=== PATIENT | female | born 1990 | race Caucasian/White ===

== ENCOUNTER 2017-07-11 15:01 | Inpatient (IN) ==
--- NOTE | 2017-07-11 15:13 | Emergency Department Note ---
Disposition Clinical Impression: UTI (urinary tract infection) Qualifiers: Urinary tract infection type: acute cystitis Hematuria presence: without hematuria Qualified Code(s): N30.00 - Acute cystitis without hematuria Fever Qualifiers: Fever type: unspecified Qualified Code(s): R50.9 - Fever, unspecified Disposition: Admitted As Inpatient Condition: Good Forms: ED Satisfaction Letter Time of Disposition: 17:20 Fever HPI - General Chief Complaint: ED Fever Stated Complaint: Flu-Like Symptoms Time Seen by Provider: 07/11/17 15:04 Source: EMS Mode of arrival: EMS Limitations: no limitations Nursing Notes Reviewed: Yes Vital Signs Reviewed: Yes - History of Present Illness HPI Narrative: 26-year-old female with a fever of, nausea vomiting. Attempt her on arrival to the ER 102.9. She was seen by healthcare provide who diagnosed her with influenza and started on Tamiflu. Patient states it makes her nauseated. Pt Subjective Complaint: fever, malaise Onset (ago): Just [employer] Context: spontaneous (Nose with flu no swab done) Associated symptoms: Reports: chills, myalgias, nausea, vomiting Improves with: nothing Treatments prior to arrival fever: ibuprofen - Related Data Home Medications Medication Instructions Recorded Confirmed HydrOXYzine 03/31/16 Lexapro 03/31/16 Loratadine 03/31/16 Vitamin B 12 03/31/16 Previous Rx's Medication Instructions Recorded Hydrocodone/Acetaminophen [[place] 1 - 2 each PO Q6H PRN #10 tablet 09/30/15 5-325 Tablet] Acyclovir [Zovirax] 800 mg PO 5XD #35 tablet 03/31/16 Azithromycin [Azithromycin 6-Tab 250 mg PO DAILY #6 tab 03/31/16 Pack] Benzonatate [Tessalon] 200 mg PO TID PRN #30 capsule 03/31/16 DiphenhydraMINE [Benadryl] 50 mg PO Q8HR PRN #30 capsule 01/18/17 PredniSONE [Deltasone] 20 mg PO DAILY 21 Days tablet 01/18/17 Allergies Allergy/AdvReac Type Severity Reaction Status Date / Time Cefaclor [From [facility]] Allergy See Verified 01/18/17 13:52 Comments All systems ED: reviewed and negative except as stated. Constitutional: Reports: fever, chills. Denies: weakness, weight change Eyes: Denies: eye pain, eye discharge, vision change ENT ED: Denies: ear pain, throat pain, dental pain, hearing loss, epistaxis, congestion, dysphagia Cardiovascular: Denies: chest pain, palpitations, dyspnea on exertion, edema, syncope Respiratory: Denies: cough, dyspnea, wheezes, hemoptysis, stridor Gastrointestinal: Reports: nausea, vomiting. Denies: abdominal pain, diarrhea, constipation, hematemesis, melena, hematochezia Genitourinary: Denies: dysuria, frequency, hematuria, discharge Musculoskeletal: Reports: arthralgia. Denies: back pain, neck pain, myalgia Integumentary: Denies: rash, abrasion, lesions Neurological: Denies: headache, weakness, numbness, paresthesias, confusion, abnormal gait, vertigo Psychiatric: Denies: anxiety, depression, suicidal thoughts, homicidal thoughts , auditory hallucinations, visual hallucinations Endocrine: Denies: fatigue Hematological/Lymphatic: Denies: easy bleeding, easy bruising Allergic/Immunologic: Denies: facial swelling, urticaria Fever PMH - Past Medical History Medical history: Reports: no medical history Psychiatric history: Reports: no psych history - Social History Smoking Status: Current every day smoker Alcohol use: Reports: occasionally Drug use: Reports: none Physical Exam - General Limitations: no limitations General appearance: alert, in no apparent distress - Head Head exam: atraumatic, normocephalic, normal inspection - Eye Eye exam: Present: normal appearance, PERRL, EOMI - ENT ENT exam: normal exam, normal oropharynx, mucous membranes moist - Neck Neck exam: Present: normal inspection, full ROM, trachea midline - Chest Chest inspection: Present: normal inspection, symmetric chest wall rise - Respiratory Respiratory exam: Present: normal lung sounds bilaterally - Cardiovascular Cardiovascular exam: Present: regular rate, normal rhythm, normal heart sounds - Abdominal Exam Abdominal exam: Present: soft, Non-Tender. Absent: tenderness, distention, guarding, rebound, rigidity - Extremities Exam Extremities exam: Present: normal inspection, full ROM. Absent: tenderness, pedal edema - Expanded Lower Extremity Exam Neurovascular/Tendon exam: Absent: motor deficit, sensory deficit, tendon deficit Gait: observed and normal - Back Exam Back exam: Present: normal inspection, full ROM. Absent: tenderness - Neurological Exam Neurological exam: Present: alert, oriented X3 - Psychiatric Psychiatric exam: Present: normal affect, normal mood - Skin Skin exam: Present: warm, dry, intact, normal color Course - Reevaluation(s) Reevaluation #1: Patient with fever, nausea and some vomiting previously comes in with temperature she reported at home 104, 102 here. Urine shows too numerous to count white cells white count slightly elevated her flu swab is negative. Patient was given a 30 mL per kilo bolus. Patient will be admitted for IV antibiotics. Time: 17:18 - Consultations Consultation #1: Discussed with Dr. Otto, admit Time: 17:18 Vital Signs Temperature 102.9 F H 07/11/17 15:02 Pulse Rate 117 07/11/17 15:02 Respiratory Rate 20 07/11/17 15:02 Blood Pressure 126/93 07/11/17 15:02 O2 Sat by Pulse Oximetry 95 07/11/17 15:02 Temperature 99.8 F H 07/11/17 16:21 Pulse Rate 110 07/11/17 16:21 Respiratory Rate 18 07/11/17 16:21 Blood Pressure 108/55 07/11/17 16:21 O2 Sat by Pulse Oximetry 93 07/11/17 16:21 Oxygen Delivery Oxygen Delivery Room Air Fever - Lab Data Result diagrams: 07/11/17 15:15 07/11/17 15:15 Lab Results 07/11/17 07/11/17 07/11/17 Range/Units 15:15 15:15 15:21 WBC 12.3 H (4.3-11.1) K/mcL RBC 4.16 (3.82-4.97) M/mcL Hgb 12.3 (11.5-15.4) g/dL Hct 36.7 (35.3-44.9) % MCV 88.2 (83.0-100.0) fL MCH 29.6 (28.0-33.3) pg MCHC 33.5 (31.6-35.5) g/dL RDW 12.2 (11.5-14.5) % Plt Count 137 L (140-400) K/mcL MPV 10.1 (9.4-12.4) fL Immature Gran % 0.4 (0-4) % Seg Neutrophils % 86.6 % Lymphocytes % 3.3 % Monocytes % 9.5 % Eosinophils % 0.0 % Basophils % 0.2 % Neutrophils # 10.6 H (1.6-8.9) K/mcL Lymphocytes # 0.4 L (0.6-4.6) K/mcL Monocytes # 1.2 (0.0-1.3) K/mcL Eosinophils # 0.0 (0.0-0.6) K/mcL Basophils # 0.0 (0.0-0.2) K/mcL Sodium 133 L (136-145) mEq/L Potassium 3.2 L (3.5-5.1) mEq/L Chloride 103 (98-107) mEq/L Carbon Dioxide 22 L (23-29) mEq/L BUN 13 (6-20) mg/dL Creatinine 0.90 (0.60-1.20) mg/dL Est GFR ( Amer) > 60 (> 60) Est GFR (Non-Af Amer) > 60 (> 60) BUN/Creatinine Ratio 14 (6-26) Glucose 136 H (70-105) mg/dL Calculated Osmolality 278 L (280-300) Lactic Acid (0.5-2.2) mmol/L Calcium 8.6 (8.6-10.3) mg/dL Total Bilirubin 0.7 (0.3-1.0) mg/dL Direct Bilirubin 0.2 (0.0-0.2) mg/dL Indirect Bilirubin 0.5 (0.0-1.2) mg/dL AST 12 L (13-39) Units/L ALT 11 (7-52) Units/L Alkaline Phosphatase 62 (34-104) Units/L Serum Total Protein 6.4 (6.4-8.9) g/dL Albumin 3.8 (3.5-5.7) g/dL Globulin 2.6 (2.4-3.5) g/dL Albumin/Globulin Ratio 1.5 (1.1-2.2) Urine Color Dark Yellow (Yellow) Urine Clarity Turbid A (Clear) Urine pH 6.0 (5.0-8.0) pH Units Ur Specific Carpenter 1.021 (1.010-1.025) Urine Protein 100 H (Neg-Trace) mg/dL Urine Glucose (UA) Normal (Normal) mg/dL Urine Ketones Negative (Negative) mg/dL Urine Blood Small H (Negative) Urine Nitrite Negative (Negative) Urine Bilirubin Negative (Negative) Urine Urobilinogen Normal (Normal) mg/dL Ur Leukocyte Esterase Large H (Negative) Urine Microscopic RBC 5-15 H (0-3) per hpf Urine Microscopic WBC TNTC H (0-3) per hpf Ur Squamous Epith Cells Many H (None-Few) per lpf Urine Bacteria Many H (None-Few) per hpf Hyaline Casts None Seen (None-Few) per lpf Ur Culture Indicated? NO. (NO) 07/11/17 Range/Units 16:17 WBC (4.3-11.1) K/mcL RBC (3.82-4.97) M/mcL Hgb (11.5-15.4) g/dL Hct (35.3-44.9) % MCV (83.0-100.0) fL MCH (28.0-33.3) pg MCHC (31.6-35.5) g/dL RDW (11.5-14.5) % Plt Count (140-400) K/mcL MPV (9.4-12.4) fL Immature Gran % (0-4) % Seg Neutrophils % % Lymphocytes % % Monocytes % % Eosinophils % % Basophils % % Neutrophils # (1.6-8.9) K/mcL Lymphocytes # (0.6-4.6) K/mcL Monocytes # (0.0-1.3) K/mcL Eosinophils # (0.0-0.6) K/mcL Basophils # (0.0-0.2) K/mcL Sodium (136-145) mEq/L Potassium (3.5-5.1) mEq/L Chloride (98-107) mEq/L Carbon Dioxide (23-29) mEq/L BUN (6-20) mg/dL Creatinine (0.60-1.20) mg/dL Est GFR ( Amer) (> 60) Est GFR (Non-Af Amer) (> 60) BUN/Creatinine Ratio (6-26) Glucose (70-105) mg/dL Calculated Osmolality (280-300) Lactic Acid 0.6 (0.5-2.2) mmol/L Calcium (8.6-10.3) mg/dL Total Bilirubin (0.3-1.0) mg/dL Direct Bilirubin (0.0-0.2) mg/dL Indirect Bilirubin (0.0-1.2) mg/dL AST (13-39) Units/L ALT (7-52) Units/L Alkaline Phosphatase (34-104) Units/L Serum Total Protein (6.4-8.9) g/dL Albumin (3.5-5.7) g/dL Globulin (2.4-3.5) g/dL Albumin/Globulin Ratio (1.1-2.2) Urine Color (Yellow) Urine Clarity (Clear) Urine pH (5.0-8.0) pH Units Ur Specific Carpenter (1.010-1.025) Urine Protein (Neg-Trace) mg/dL Urine Glucose (UA) (Normal) mg/dL Urine Ketones (Negative) mg/dL Urine Blood (Negative) Urine Nitrite (Negative) Urine Bilirubin (Negative) Urine Urobilinogen (Normal) mg/dL Ur Leukocyte Esterase (Negative) Urine Microscopic RBC (0-3) per hpf Urine Microscopic WBC (0-3) per hpf Ur Squamous Epith Cells (None-Few) per lpf Urine Bacteria (None-Few) per hpf Hyaline Casts (None-Few) per lpf Ur Culture Indicated? (NO)
[2017-07-11] MEDS ORDERED: 0.9 % Sodium Chloride 1,000 ML IVC ONE (15:14)
[2017-07-11] MEDS ORDERED: Ondansetron 4 MG/2 ML VIAL IVP ONE ×2 (15:20→16:09)
[2017-07-11] MEDS ORDERED: Acetaminophen 325 MG TABLET PO ONE (15:20)
[2017-07-11 15:23] LABS: Basophils % 0.2 %; Hematocrit 36.7 % (35.3-44.9); Hemoglobin 12.3 g/dL (11.5-15.4); Immature Granulocytes % 0.4 % (0-4); Lymphocytes # 0.4 K/mcL (0.6-4.6); Lymphocytes % 3.3 %; Mean Corpuscular HGB Conc 33.5 g/dL (31.6-35.5); Mean Corpuscular Hemoglobin 29.6 pg (28.0-33.3); Mean Corpuscular Volume 88.2 fL (83.0-100.0); Mean Platelet Volume 10.1 fL (9.4-12.4); Monocytes # 1.2 K/mcL (0.0-1.3); Monocytes % 9.5 %; Neutrophils # 10.6 K/mcL (1.6-8.9); Platelet Count 137 K/mcL (140-400); Red Blood Count 4.16 M/mcL (3.82-4.97); Red Cell Distribution Width 12.2 % (11.5-14.5); Segmented Neutrophils % 86.6 %
[2017-07-11 15:27] LABS: Bilirubin,Urine Negative (Negative); Blood,Urine Small (Negative); Clarity,Urine Turbid (Clear); Color,Urine Dark Yellow (Yellow); Glucose,Urine (UA) Normal (Normal); Ketones,Urine Negative (Negative); Leukocyte Esterase,Urine Large (Negative); Nitrite,Urine Negative (Negative); Protein,Urine 100 mg/dL (Neg-Trace); Specific Gravity,Urine 1.021 (1.010-1.025); Urobilinogen,Urine Normal (Normal)
[2017-07-11 15:28] LABS: Bacteria,Urine Many per hpf (None-Few); Hyaline Casts,Urine None Seen per lpf (None-Few); Squamous Epithelial Cell,Urine Many per lpf (None-Few); WBC,Urine TNTC per hpf (0-3)
[2017-07-11 16:02] LABS: Alanine Aminotransferase 11 Units/L (7-52); Albumin 3.8 g/dL (3.5-5.7); Albumin/Globulin Ratio 1.5 (1.1-2.2); Alkaline Phosphatase 62 Units/L (34-104); Aspartate Amino Transferase 12 Units/L (13-39); Bilirubin,Direct 0.2 mg/dL (0.0-0.2); Bilirubin,Indirect 0.5 mg/dL (0.0-1.2); Bilirubin,Total 0.7 mg/dL (0.3-1.0); Blood Urea Nitrogen 13 mg/dL (6-20); Calcium 8.6 mg/dL (8.6-10.3); Carbon Dioxide 22 mEq/L (23-29); Chloride 103 mEq/L (98-107); Globulin 2.6 g/dL (2.4-3.5); Glucose 136 mg/dL (70-105); Osmolality,Calculated 278 (280-300); Potassium 3.2 mEq/L (3.5-5.1); Sodium 133 mEq/L (136-145); Total Protein 6.4 g/dL (6.4-8.9)
[2017-07-11] MEDS ORDERED: Levofloxacin 500 MG/100 ML 500 MG/100 ML BAG IVPB ONE (16:11)
[2017-07-11] MEDS ORDERED: 0.9 % Sodium Chloride 1,000 ML IVC SCH (16:30)
[2017-07-11 17:11] LABS: BUN/Creatinine Ratio 14 (6-26); eGFR For African Americans > 60 (> 60); eGFR For Non-African Americans > 60 (> 60)
[2017-07-11] MEDS ORDERED: Naloxone 0.4 MG/ML INJ IVP PRN (20:53)
[2017-07-11] MEDS ORDERED: *HR* Meperidine 25 MG/ML SYRINGE IVP PRN ×4 (20:55→23:42)
--- NOTE | 2017-07-11 21:03 | Internal Med History&Physical ---
Date of Encounter: 07/11/17 Time of Encounter: 20:58 Assessment and Plan (1) URI (upper respiratory infection) Current visit: Yes Status: Acute check RVP continue tamiflu until RVP negative IVF with K for low K and low Na Empiric IV antibiotics for UTI ?? - not overtly symptomatic clinically, UA appears dirty Demerol for chills Blood and urine cx pend monitor 24-48 hr for improvement Specifically, no meningeal signs on exam but will monitor closel for now Qualifiers: URI type: unspecified viral URI Qualified Code(s): J06.9 - Acute upper respiratory infection, unspecified (2) Hyponatremia Current visit: Yes Status: Acute IVF with K for low K and low Na unable to tolerate PO intake, need IvF Iv zofran prn (3) Fever Current visit: Yes Status: Acute empiric fluid and antibiotics above Qualifiers: Fever type: due to other condition Qualified Code(s): R50.81 - Fever presenting with conditions classified elsewhere Internal Medicine - H&P: HPI Chief complaint: Chills,rigors History of present illness: Ms. Owusu is a 26 year old female with no PMH who presents with chills. Suspect viral infection She developed symptoms approx 4-5 days ago. Was seen in urgent care on and was given tamiflu where she started on thursday a.m with no improvement. She has been in bed for 2 days with symptoms of anorexia, nausea/emesis, sore throat , muscle ache all over, back pain, frontal and back of head headache with intermittent "flashes" seen. She has no UTI symptoms but has chills XR/XR chest 1V portable IMPRESSION: No acute cardiopulmonary process Past Med Surg Social Fam HX - Past Medical History Medical history: no medical history Psychiatric history: no psych history - Past Surgical History Surgical History: no surgical history, non-contributory - Social History Smoking Status: Current every day smoker Packs per day: <1 Smokeless Tobacco Status: No Alcohol use: occasionally Drug use: none - Family History Mother Hx Family Medical Disorders: No Internal Medicine - H&P: Meds Oseltamivir [Tamiflu] 75 mg PO BID 07/11/17 [History] 3 Allergy/AdvReac Type Severity Reaction Status Date / Time Cefaclor [From Ceclor] Allergy See Verified 01/18/17 13:52 Comments All Systems PM: A 10-system review of systems was performed and is negative for pertinent findings except as documented above in the HPI. Review of systems: ROS 14 point review of systems reviewed as best as possible given presentation. Pertinent positive or negative as per HPI or otherwise reviewed as negative - Constitutional Vitals: Temp Pulse Resp BP Pulse Ox 99.4 F 105 16 91/59 98 07/11/17 18:43 07/11/17 18:43 07/11/17 18:43 07/11/17 18:43 07/11/17 18:43 Exam: General - AAO x 3 Psych - Appropriate affect/speech. No agitation Eyes - HUMBLE. Eye lids intact. No scleral icterus Neuro - No gross peripheral or central neuro deficits on inspection. Negative for Kernig sign, mild neck discomfort but no overt Brudzinski sign Heart - Sinus. RRR. S1 and S2 present. No added HS/murmurs appreciated. No elevated JVD appreciated. Lung - Adequate air entry b/l, No crackles/wheezes appreciated GI - Soft, non-tender. No hepatosplenomegaly/ascites. BS+ - No CVA/suprapubic tenderness or palpable bladder distension Skin - Intact. No rash/petechiae/ecchymosis. Warm extremities Internal Med - H&P Results - Labs CBC & Chem 7: 07/11/17 15:15 07/11/17 15:15
[2017-07-11] MEDS ORDERED: Ondansetron 4 MG/2 ML VIAL IVP PRN (21:05)
[2017-07-11] MEDS: Ibuprofen 400 MG TABLET PO PRN (21:15)
[2017-07-11] MEDS: 0.9 % Sodium Chloride 1,000 ML IVC SCH ×2 (21:36→23:31)
[2017-07-11] MEDS: Acetaminophen 325 MG TABLET PO PRN (22:43)
[2017-07-12] MEDS: 0.9 % Sodium Chloride w KCl 20 MEQ/1,000 ML MLS IVC SCH ×2 (01:15→11:06)
[2017-07-12 02:42] LABS: Adenovirus Not Detected (Not Detect); Bordetella Pertussis Not Detected (Not Detect); Chlamydophila pneumoniae Not Detected (Not Detect); Coronavirus 229E Not Detected (Not Detect); Coronavirus HKU1 Not Detected (Not Detect); Coronavirus NL63 Not Detected (Not Detect); Coronavirus OC43 Not Detected (Not Detect); Human Metapneumovirus Not Detected (Not Detect); Human Rhinovirus/Enterovirus Not Detected (Not Detect); Influenza A Subtype 2009 H1 Not Detected (Not Detect); Influenza A Untypeable Not Detected (Not Detect); Influenza B Not Detected (Not Detect); Mycoplasma pneumoniae Not Detected (Not Detect); Parainfluenza Virus 1 Not Detected (Not Detect); Parainfluenza Virus 2 Not Detected (Not Detect); Parainfluenza Virus 3 Not Detected (Not Detect); Parainfluenza Virus 4 Not Detected (Not Detect); Respiratory Syncytial Virus Not Detected (Not Detect)
[2017-07-12] MEDS: Ibuprofen 400 MG TABLET PO PRN ×2 (02:42→07:44)
[2017-07-12] MEDS: Acetaminophen 325 MG TABLET PO PRN ×2 (03:27→11:05)
[2017-07-12 04:27] LABS: Basophils % 0.1 %; Hematocrit 34.8 % (35.3-44.9); Hemoglobin 11.2 g/dL (11.5-15.4); Immature Granulocytes % 0.7 % (0-4); Lymphocytes # 1.2 K/mcL (0.6-4.6); Lymphocytes % 11.2 %; Mean Corpuscular HGB Conc 32.2 g/dL (31.6-35.5); Mean Corpuscular Hemoglobin 29.5 pg (28.0-33.3); Mean Corpuscular Volume 91.6 fL (83.0-100.0); Mean Platelet Volume 10.6 fL (9.4-12.4); Monocytes # 0.8 K/mcL (0.0-1.3); Monocytes % 7.7 %; Neutrophils # 8.4 K/mcL (1.6-8.9); Platelet Count 121 K/mcL (140-400); Red Cell Distribution Width 12.4 % (11.5-14.5); Segmented Neutrophils % 80.3 %
[2017-07-12] MEDS ORDERED: *HR* FentaNYL (PF) 100 MCG/2 ML VIAL IVP ONE (04:52)
[2017-07-12] MEDS ORDERED: 0.9 % Sodium Chloride 1,000 ML IVC ONE (05:00)
[2017-07-12] MEDS ORDERED: Vancomycin 2,000 MG in D5% in Water 250 ML IVPB ONE (05:04)
[2017-07-12 05:08] LABS: Alanine Aminotransferase 12 Units/L (7-52); Albumin 3.4 g/dL (3.5-5.7); Albumin/Globulin Ratio 1.5 (1.1-2.2); Alkaline Phosphatase 59 Units/L (34-104); Aspartate Amino Transferase 15 Units/L (13-39); BUN/Creatinine Ratio 11 (6-26); Bilirubin,Total 0.6 mg/dL (0.3-1.0); Blood Urea Nitrogen 10 mg/dL (6-20); Calcium 7.6 mg/dL (8.6-10.3); Carbon Dioxide 23 mEq/L (23-29); Chloride 112 mEq/L (98-107); Globulin 2.3 g/dL (2.4-3.5); Glucose 129 mg/dL (70-105); Osmolality,Calculated 293 (280-300); Potassium 3.5 mEq/L (3.5-5.1); Sodium 141 mEq/L (136-145); Total Protein 5.7 g/dL (6.4-8.9); eGFR For African Americans > 60 (> 60); eGFR For Non-African Americans > 60 (> 60)
[2017-07-12] MEDS ORDERED: Vancomycin 1,500 MG in D5% in Water 250 ML IVPB SCH (06:00)
[2017-07-12] MEDS ORDERED: *HR* Enoxaparin 40 MG/0.4 ML SYRINGE SQ SCH (06:00)
[2017-07-12 10:08] LABS: Acinetobacter baumannii by PCR Not Detected (Not Detect); Candida albicans by PCR Not Detected (Not Detect); Candida glabrata by PCR Not Detected (Not Detect); Candida krusei by PCR Not Detected (Not Detect); Enterococcus by PCR Not Detected (Not Detect); Escherichia coli by PCR ***DETECTED*** (Not Detect); Klebsiella oxytoca by PCR Not Detected (Not Detect); Klebsiella pneumoniae by PCR Not Detected (Not Detect); Pseudomonas aeruginosa by PCR Not Detected (Not Detect); Serratia marcescens by PCR Not Detected (Not Detect); Staphylococcus aureus by PCR Not Detected (Not Detect); Streptococcus agalactiae(B)PCR Not Detected (Not Detect); Streptococcus by PCR Not Detected (Not Detect); Streptococcus pneumoniae PCR Not Detected (Not Detect); Streptococcus pyogenes (A) PCR Not Detected (Not Detect); blaKPC Carbapenem-Resist Gene Not Detected (Not Detect)
[2017-07-12 10:09] LABS: Candida parapsilosis by PCR Not Detected (Not Detect); Candida tropicalis by PCR Not Detected (Not Detect)
[2017-07-12 11:15] VITALS: BP 99/62
[2017-07-12] MEDS ORDERED: Acetaminophen/Aspirin/Caffeine TABLET PO PRN (12:06)
--- NOTE | 2017-07-12 14:22 | Internal Med Progress Note ---
Date of Encounter: 07/12/17 Time of Encounter: 09:20 - Assessment and plan (1) Sepsis Current Visit: Yes Status: Acute Assessment and plan: Patient will patient's blood cultures positive for gram-negative rods possibly Escherichia coli. Will continue antibiotic to target this. Respiratory panel has been negative. We will stop vancomycin. High risk for complications due to gram-negative angelica sepsis. WBC count is improving. Patient has not had fever this morning. Possible source likely acute cystitis. Qualifiers: Sepsis type: Escherichia coli Qualified Code(s): A41.51 - Sepsis due to Escherichia coli [E. coli] (2) Hyponatremia Current Visit: Yes Status: Resolved (3) URI (upper respiratory infection) Current Visit: Yes Status: Ruled-out Assessment and plan: Respiratory panel negative. Qualifiers: URI type: unspecified viral URI Qualified Code(s): J06.9 - Acute upper respiratory infection, unspecified - Subjective Interval history: Patient feeling somewhat better today. Does complain of a headache. No blurred vision. No dysuria. No chest pain cough or shortness of breath. No abdominal pain nausea or vomiting. No diarrhea. - Constitutional Vitals: Temp Pulse Resp BP Pulse Ox 98.2 F 94 16 99/62 99 07/12/17 11:15 07/12/17 11:15 07/12/17 11:15 07/12/17 11:15 07/12/17 11:15 General appearance: Present: cooperative, A&O X 3, answers questions appropriately - Respiratory Respiratory exam: Present: CTAB. Absent: accessory muscle use, rales, rhonchi, wheezes - Cardiovascular Cardiovascular exam: Present: RRR, +S1, +S2. Absent: diastolic murmur, gallop, rubs, systolic murmur - GI/Abdominal GI/Abdominal exam: Present: normal bowel sounds, soft, no peritoneal signs. Absent: distended, tenderness - Extremities Exam Extremities exam: Present: warm, radial pulses palpable and symmetrical. Absent : calf tenderness, cyanotic, pedal edema Internal Medicine: Result - Labs CBC & Chem 7: 07/12/17 03:34 07/12/17 03:34 Labs: Short CBC 07/12/17 Range/Units 03:34 WBC 10.5 (4.3-11.1) K/mcL Hgb 11.2 L (11.5-15.4) g/dL Hct 34.8 L (35.3-44.9) % Plt Count 121 L (140-400) K/mcL Neutrophils # 8.4 (1.6-8.9) K/mcL BMP 07/12/17 03:34 Sodium 141 Potassium 3.5 Chloride 112 H Carbon Dioxide 23 BUN 10 Creatinine 0.89 Glucose 129 H Calcium 7.6 L Liver Function 07/12/17 Range/Units 03:34 Total Bilirubin 0.6 (0.3-1.0) mg/dL AST 15 (13-39) Units/L ALT 12 (7-52) Units/L Alkaline Phosphatase 59 (34-104) Units/L Albumin 3.4 L (3.5-5.7) g/dL Consult Discharge Plan - Plan Referrals: NONE,PCP [Primary Care Provider] -
[2017-07-12] MEDS ORDERED: Aminoglycoside Consult 1 EACH MC ONE (15:41)
[2017-07-12] MEDS ORDERED: Vancomycin 0 MG in D5% in Water 250 ML IVPB SCH (18:00)
== END 2017-07-12 15:42 | disposition left against medical advice (07) | DRG 720 ==
LOC: 3NENU 15:01 → EMEROO 15:01 → 3NENU 18:24 → SUATTDRO 21:11
PROVIDERS: ADMIT Internal Medicine; ATTEND Internal Medicine